=== PATIENT | female | born 1965 | race American Indian/Alaskan Native ===

== ENCOUNTER 2017-06-28 20:39 | Emergency (ER) | payer OTHER ==
[2017-06-28 21:27] VITALS: BP 126/76
[2017-06-29] MEDS ORDERED: ZOFRAN ODT PO ONE (01:34)
[2017-06-29 02:03] LABS: Bilirubin,Urine NEG (Negative); Blood,Urine MOD (Negative); Color,Urine Yellow (Yellow); Hyaline Casts,Urine 1 /LPF; Nitrite,Urine NEG (Negative); Protein,Urine <15 mg/dL mg/dL (Negative); Urobilinogen,Urine < 2.0 mg/dL (<2.0)
--- NOTE | 2017-06-29 02:03 | Emergency Department Report ---
HPI - General Chief Complaint: Upper Respiratory Infection Time Seen by Provider: 06/29/17 01:33 - HPI HPI: 51-year-old -[place] female comes in for nausea vomiting headache chills and sweats and cough onset today. Patient reports that she is feeling tired. Patient reports that she has vomited all day she still has nausea. Patient reports sore throat but has not taken any medication to relieve any of her symptoms. Patient has no past medical history currently takes no meds has no known drug allergies and doesn't have a primary care provider ED Past Medical Hx - Past Medical History Previous Medical History?: No Additional medical history: endometriosis - Surgical History Additional Surgical History: tonsilectomy, left foot, tubes tied - Social History Smoking Status: Current Every Day Smoker Substance Use Type: Alcohol ED Review of Systems ROS: Stated complaint: FLY SYMPTOMS Other details as noted in HPI Physical Exam - Physical Exam Vital Signs: Vital Signs 06/28/17 21:22 Temperature 98.5 F Pulse Rate 89 Respiratory 18 Rate Blood Pressure 126/76 O2 Sat by Pulse 96 Oximetry ED Course Vital Signs 06/28/17 21:22 Temperature 98.5 F Pulse Rate 89 Respiratory 18 Rate Blood Pressure 126/76 O2 Sat by Pulse 96 Oximetry ED Medical Decision Making - Medical Decision Making Patient has been evaluated by this provider fast track. Urinalysis and rapid strep was sent out. Urinalysis came back with moderate amount of blood strep was negative discuss results with patient she would inform me at that time that she has a history of hematuria. Patient reports she is feeling better she has not vomited since being here. I believe patient is safe to discharge home with follow-up with her primary care provider I have listed several for her. Critical care attestation.: If time is entered above; I have spent that time in minutes in the direct care of this critically ill patient, excluding procedure time. ED Disposition Clinical Impression: Hematuria Qualifiers: Hematuria type: unspecified type Qualified Code(s): R31.9 - Hematuria, unspecified Disposition: - TO HOME OR SELFCARE Is pt being admited?: No Does the pt Need Aspirin: No Condition: Stable Instructions: Acute Hematuria (ED) Additional Instructions: Please follow up with the primary care provider for further evaluation. Referrals: JASON QUIÑONES MD [Primary Care Provider] - 3-5 Days [facility] [Provider Group] - 3-5 Days Forms: Work/School Release Form(ED)
== END 2017-06-29 03:15 | disposition home or self-care (01) ==
LOC: ED 20:39
DX: R31.9 Hematuria, unspecified (principal); F17.200 Nicotine dependence, unspecified, uncomplicated
CPT/HCPCS: 81001; 87086; 87116; 87430; 99283; Q0162

== ENCOUNTER 2018-11-20 07:27 | Outpatient (CLI) | payer OTHER ==
[2018-11-20] MEDS ORDERED: PROVENTIL IH ONE (08:49)
== END 2018-11-20 07:28 | disposition home or self-care (01) ==
LOC: PF 07:27
PROVIDERS: ATTEND Internal Medicine
DX: Z02.71 Encounter for disability determination (principal); J45.909 Unspecified asthma, uncomplicated; M17.0 Bilateral primary osteoarthritis of knee
CPT/HCPCS: 94060